=== PATIENT | male | born 1990 | race American Indian/Alaskan Native ===

== ENCOUNTER 2020-12-09 12:18 | Emergency (ER) | payer SELFPAY ==
[2020-12-09 13:34] VITALS: BP 162/106
--- NOTE | 2020-12-09 14:02 | Emergency Department Report ---
- General Chief complaint: Skin/Abscess/Foreign Body Stated complaint: PAIN,BLOOD,PUS IN GROIN AREA Time Seen by Provider: 12/09/20 13:52 Source: patient Mode of arrival: Ambulatory Limitations: No Limitations - History of Present Illness Initial comments: Patient is a 30-year-old male presents emergency room with points of a possible abscess to the right groin that began 3 to 4 days ago. He states this morning it opened and began draining on its own. He states he has pus and blood drainage. He denies any fever, nausea, vomiting, diarrhea, chills. Past medical history of hypertension and states that he takes lisinopril but did not take it today, he states he needs a refill of his medication. He denies any medication allergies. - Related Data Previous Rx's Medication Instructions Recorded Last Taken Type Clindamycin [Clindamycin CAP] 450 mg PO TID 7 Days #63 capsule 12/09/20 Unknown Rx Lisinopril [Zestril] 5 mg PO DAILY #30 tablet 12/09/20 Unknown Rx Allergies Allergy/AdvReac Type Severity Reaction Status Date / Time No Known Allergies Allergy Verified 12/09/20 13:16 Abscess Boil HPI - HPI Chief Complaint: Skin/Abscess/Foreign Body Stated Complaint: PAIN,BLOOD,PUS IN GROIN AREA Time Seen by Provider: 12/09/20 13:52 Home Medications: Previous Rx's Medication Instructions Recorded Last Taken Type Clindamycin [Clindamycin CAP] 450 mg PO TID 7 Days #63 capsule 12/09/20 Unknown Rx Lisinopril [Zestril] 5 mg PO DAILY #30 tablet 12/09/20 Unknown Rx Allergies/Adverse Reactions: Allergies Allergy/AdvReac Type Severity Reaction Status Date / Time No Known Allergies Allergy Verified 12/09/20 13:16 ED Review of Systems ROS: Stated complaint: PAIN,BLOOD,PUS IN GROIN AREA Other details as noted in HPI Comment: All other systems reviewed and negative ED Past Medical Hx - Past Medical History Hx Hypertension: Yes - Surgical History Past Surgical History?: No - Social History Smoking Status: Never Smoker Substance Use Type: None - Medications Home Medications: Home Medications Medication Instructions Recorded Confirmed Last Taken Type Clindamycin [Clindamycin CAP] 450 mg PO TID 7 Days #63 capsule 12/09/20 Unknown Rx Lisinopril [Zestril] 5 mg PO DAILY #30 tablet 12/09/20 Unknown Rx ED Physical Exam - General Limitations: No Limitations General appearance: alert, in no apparent distress - Head Head exam: Present: atraumatic, normocephalic - Eye Eye exam: Present: normal appearance - ENT ENT exam: Present: mucous membranes moist - Neurological Exam Neurological exam: Present: alert, oriented X3 - Psychiatric Psychiatric exam: Present: normal affect, normal mood - Skin Skin exam: Present: warm, dry, other (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 He states this morning it opened and began draining on its own. He states he has pus and blood drainage. He denies any fever, nausea, vomiting, diarrhea, chills. Past medical history of hypertension and states that he takes lisinopril but did not take it today, he states he needs a refill of his medication. He denies any medication allergies. Vitals with elevated blood pressure, otherwise stable, patient has not taken his medication, he needs a refill of his lisinopril, he is not having any symptoms related to his blood pressure. 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 Examination appears consistent with abscess that is already open and draining, no significant surrounding cellulitis. Patient does not need I&D at this time as it is already draining. Patient will be given prescription for antibiotics. Discussed the importance of outpatient follow-up to have area reexamined. Discussed return precautions with patient. Advised patient Please take medication as prescribed. Please do warm compresses 3 times a day. Follow-up with primary care doctor to have area reexamined within the next 3 days. Return to emergency room immediately for any new or worsening symptoms including but not limited to worsening swelling, worsening redness, fever, worsening drainage, etc. Please take your blood pressure medication as prescribed. Eat a low-sodium diet. Incorporate 30-60 minutes of daily exercise. Increase your water intake. Keep a blood pressure log and take this to the primary care doctor. Critical care attestation.: If time is entered above; I have spent that time in minutes in the direct care of this critically ill patient, excluding procedure time. ED Disposition Clinical Impression: Abscess, Elevated blood pressure reading, Medication refill Disposition: HOME / SELF CARE / HOMELESS Is pt being admited?: No Does the pt Need Aspirin: No Condition: Stable Instructions: Skin Abscess Additional Instructions: Please take medication as prescribed. Please do warm compresses 3 times a day. Follow-up with primary care doctor to have area reexamined within the next 3 days. Return to emergency room immediately for any new or worsening symptoms including but not limited to worsening swelling, worsening redness, fever, worsening drainage, etc. Please take your blood pressure medication as prescribed. Eat a low-sodium diet. Incorporate 30-60 minutes of daily exercise. Increase your water intake. Keep a blood pressure log and take this to the primary care doctor. Prescriptions: Clindamycin [Clindamycin CAP] 450 mg PO TID 7 Days #63 capsule Lisinopril [Zestril] 5 mg PO DAILY #30 tablet Referrals: NORRIS FRENCH MD [Staff Physician] - 3-5 Days [facility] [Provider Group] - 3-5 Days Time of Disposition: 14:00 Print Language: ARMENIAN
== END 2020-12-09 17:34 | disposition home or self-care (01) ==
LOC: ED 12:18
DX: L02.91 Cutaneous abscess, unspecified (principal); R03.0 Elevated blood-pressure reading, without diagnosis of hypertension; I10 Essential (primary) hypertension; Z76.0 Encounter for issue of repeat prescription; Z79.899 Other long term (current) drug therapy